=== PATIENT | female | born 1965 | race Caucasian/White ===

== ENCOUNTER 2018-06-18 04:02 | Emergency (ER) | payer MEDICARE ==
[~2018-06-18] VITALS: Ht 160 cm; Wt 72.1 kg
[~2018-06-18 04:02] MED LIST: CLON0.5T; QUET400T PO
--- NOTE | 2018-06-18 04:10 | NUR ---
PT BIBSELF FROM HOME S/P FALLING ON STEPS AND HITTING HEAD AGAINST WALL. LAC ON FOREHEAD. LEFT LEG BRUISING. RIGHT HAND ABRASION. CHIN ABRASION. NAD NOTED. RESP EEVN AND UNLABORED. PT AOX4. PT ON MONITOR IN BED 2 WITH FAMILY AT BEDSIDE. WILL CONTINUE TO MONITOR.
[2018-06-18] MEDS ORDERED: BACITRACIN ZINC OINT PACKET 1 EA PACKET TP ONE (05:00)
[2018-06-18] MEDS ORDERED: TDAP [DIPH/PERTUSSIS/TET] 0.5 ML VIAL IM ONE ×2 (05:00→05:19)
--- NOTE | 2018-06-18 05:02 | NUR ---
PT TAKEN TO RADIOLOGY VIA KAELA
--- NOTE | 2018-06-18 05:15 | NUR ---
TECH AT BEDSIDE FOR WOUND CARE
[2018-06-18 05:34] VITALS: BP 120/83
--- NOTE | 2018-06-18 06:01 | NUR ---
Patient discharged to home in stable condition. Written and verbal after care instructions given. Patient verbalizes understanding of instruction. PT AMBULATORY WITH STEADY GAIT ACCOMPANIED BY FAMILY.
== END 2018-06-18 06:12 | disposition home or self-care (01) ==
LOC: ER 04:05
DX: S01.81XA Laceration without foreign body of other part of head, initial encounter (principal); S16.1XXA Strain of muscle, fascia and tendon at neck level, initial encounter; S80.12XA Contusion of left lower leg, initial encounter; F20.9 Schizophrenia, unspecified; F17.200 Nicotine dependence, unspecified, uncomplicated; Z90.89 Acquired absence of other organs; Z88.0 Allergy status to penicillin; Z88.8 Allergy status to other drugs, medicaments and biological substances; Z86.711 Personal history of pulmonary embolism; Z79.899 Other long term (current) drug therapy; W01.198A Fall on same level from slipping, tripping and stumbling with subsequent striking against other object, initial encounter; Y93.89 Activity, other specified; Y92.89 Other specified places as the place of occurrence of the external cause; Y99.8 Other external cause status
CPT/HCPCS: 70450; 72125; 90471; 90715; 99284; A4606

== ENCOUNTER 2018-08-03 18:24 | Inpatient (IN) | payer MEDICARE ==
[~2018-08-03] VITALS: Ht 160 cm; Wt 73.0 kg
--- NOTE | 2018-08-03 18:43 | NUR ---
PT BIBSELF FOR DISTENDED ABDOMEN; PT AAOX4, PT ON MONITOR, VSS, NAD NOTED, PENDING ER PROVIDER EVAL
[2018-08-03 19:12] LABS: BASOPHILS # (AUTO) 0.1 /CMM (0.0-0.2); BASOPHILS % (AUTO) 0.6 % (0.0-2.0); HEMATOCRIT 43 % (33-45); LYMPHOCYTES % (AUTO) 7.3 % (20.0-44.0); MEAN CORPUSCULAR HGB CONC 35 g/dl (31.0-36.0); MEAN CORPUSCULAR VOLUME 95 fL (82-100); MONOCYTES # (AUTO) 1.1 /CMM (0.1-1.30); MONOCYTES % (AUTO) 8.1 % (2.0-12.0); NEUTROPHILS # (AUTO) 11.7 /CMM (1.8-8.9); PLATELET COUNT (AUTO) 431 /CMM (150-450); RED BLOOD CELL COUNT(AUTO) 4.54 MIL/uL (4.0-5.2); WHITE BLOOD COUNT (AUTO) 14.1 K/uL (4.3-11.0)
--- NOTE | 2018-08-03 19:31 | NUR ---
I CALLED [facility] AND SPOKE TO COOK SEAFOOD RADIOLOGIST, HE SAID THAT IT IS UNUSUAL TO DO PROCEDURES LATE AT THIS TIME AND IF PATIENT CAN BE ADMITTED AND HAVE PARACENTESIS DONE TOMORROW MORNING. SPOKE TO ER PHYSICIAN AFTERWARDS AND SHE SAID PATIENT LIKELY GOING TO BE ADMITTED AND WILL COORDINATE WITH COOK SEAFOOD RADIOLOGIST IF NEED BE. LABS, BLOOD THINNERS, AND CONSENT PENDING AT THIS TIME.
[2018-08-03 19:32] LABS: ALBUMIN 2.6 g/dL (3.4-5.0); BILIRUBIN,DIRECT 0.3 mg/dL (0.0-0.2); BILIRUBIN,TOTAL 0.7 mg/dL (0.2-1.0); CALCIUM, SERUM 8.2 mg/dL (8.5-10.1); CREATININE 0.6 mg/dL (0.6-1.3); POTASSIUM 3.9 mmol/L (3.5-5.1); TOTAL PROTEIN, SERUM 5.9 g/dL (6.4-8.2)
[2018-08-03 20:44] LABS: BAND % (MANUAL) 1 % (0.0-5.0); EOSINOPHILS % (MANUAL) 3 % (0-4); LYMPHOCYTES % (MANUAL) 6 % (16-48); MONOCYTES % (MANUAL) 5 % (0-11.0); NEUTROPHILS % (MANUAL) 85 (42-76)
--- NOTE | 2018-08-03 21:36 | NUR ---
[facility] P[facility], DAISHA JONES POWER SWITCHBOARD OPERATOR
--- NOTE | 2018-08-03 21:37 | NUR ---
CALLED NURSING SUP. FOR TELE BED
--- NOTE | 2018-08-03 21:50 | NUR ---
PAGED DR. LEVI
[2018-08-03] MEDS ORDERED: IV NS 0.9% 1,000 ML BAG IV ONE (22:00)
--- NOTE | 2018-08-03 22:13 | NUR ---
TELE 113-2
--- NOTE | 2018-08-03 22:35 | NUR ---
REPORT GIVEN TO KALLI LEE FOR ELISABETH; PT WILL BE TRANSPORTED VIA ACLS PROTOCOL
[2018-08-03 22:52] VITALS: BP 119/74
[2018-08-03] MEDS ORDERED: Z GUARD REMEDY 2 OZ OINT TP PRN (23:00)
[2018-08-03] MEDS ORDERED: ONDANSETRON HCL/PF 4 MG/2 ML VIAL IVP PRN (23:00)
[2018-08-03] MEDS ORDERED: MAG HYDROX/AL HYDROX/SIMETH 30 ML UDC PO PRN (23:00)
[2018-08-03] MEDS ORDERED: MAGNESIUM HYDROXIDE 30 ML UDC PO PRN (23:00)
[2018-08-03] MEDS ORDERED: QUETIAPINE FUMARATE 100 MG TABLET PO ONE (23:30)
[2018-08-03 23:55] VITALS: BP 119/74
[2018-08-04] VITALS: BP 115/77
[2018-08-04 04:00] VITALS: BP 99/65
[2018-08-04 05:02] LABS: BASOPHILS % (AUTO) 0.3 % (0.0-2.0); EOSINOPHILS % (AUTO) 1.1 % (0.0-6.0); HEMATOCRIT 38 % (33-45); HEMOGLOBIN 13.5 g/dL (11.5-14.8); LYMPHOCYTES # (AUTO) 0.9 /CMM (0.8-4.8); LYMPHOCYTES % (AUTO) 11.1 % (20.0-44.0); MEAN CORPUSCULAR HGB CONC 35 g/dl (31.0-36.0); MEAN CORPUSCULAR VOLUME 94 fL (82-100); MONOCYTES # (AUTO) 0.9 /CMM (0.1-1.30); MONOCYTES % (AUTO) 10.6 % (2.0-12.0); NEUTROPHILS # (AUTO) 6.6 /CMM (1.8-8.9); NEUTROPHILS % (AUTO) 76.9 % (43.0-81.0); PLATELET COUNT (AUTO) 301 /CMM (150-450); RED BLOOD CELL COUNT(AUTO) 4.05 MIL/uL (4.0-5.2); WHITE BLOOD COUNT (AUTO) 8.5 K/uL (4.3-11.0)
[2018-08-04 05:25] LABS: CALCIUM, SERUM 8.3 mg/dL (8.5-10.1); CREATININE 0.5 mg/dL (0.6-1.3); MAGNESIUM 1.9 mg/dL (1.8-2.4); PHOSPHORUS 4.1 mg/dL (2.5-4.9); POTASSIUM 4.2 mmol/L (3.5-5.1)
[2018-08-04 06:02] LABS: THYROID STIMULATING HORMONE 1.953 uIU/mL (0.358-3.74)
--- NOTE | 2018-08-04 06:43 | NUR ---
rn notes received patient from er via stretcher at about 2230, in stable condition. no distress noted. breathing even and unlabored. no complaint of pain or discomfort. vital signs wnl. alert and oriented. verbally able to communicate needs. ambulatory. needs attended. meds given. kept clean and dry
--- NOTE | 2018-08-04 07:43 | NUR ---
ALL AROUND GEAR MACHINE OPERATOR OPENING NOTES RECEIVED PATIENT FROM METAL CLEANER RN, A/O X 4, IN BED AND AWAKE. NO DISTRESS NOTED, NO C/O PAIN. ON TELE SR93, BREATHING EVEN AND UNLABORED. PATIENT AMBULATORY AND ABLE TO COMMUNICATE NEEDS. WILL CONTINUE TO MONITOR.
[2018-08-04 08:00] VITALS: BP_SYST 100; BP_SYST 110; BP_DIAS 62
[2018-08-04] MEDS ORDERED: PANTOPRAZOLE 40 MG VIAL IV SCH (09:00)
[2018-08-04] MEDS ORDERED: NICOTINE PATCH (14MG) 14 MG PATCH.TD24 TD SCH (09:00)
[2018-08-04 12:00] VITALS: BP_SYST 112; BP_DIAS 68; BP_DIAS 70
[2018-08-04] MEDS ORDERED: PANTOPRAZOLE 40 MG TABLET.DR PO SCH (12:15)
--- NOTE | 2018-08-04 14:48 | NUR ---
SHIPS EQUIPMENT ENGINEER NOTE URINE SPECIMEN COLLECTED AND SENT TO LABS FOR UA
[2018-08-04 16:00] VITALS: BP 110/75
[2018-08-04 16:14] LABS: APPEARANCE,URINE CLEAR (CLEAR); BILIRUBIN,URINE NEGATIVE (NEGATIVE); BLOOD, URINE NEGATIVE Ery/uL (NEGATIVE); COLOR,URINE YELLOW (YELLOW); PH,URINE 6.5 (5.0-8.0); PROTEIN,URINE NEGATIVE (NEGATIVE); UGLUCOSE NEGATIVE (NEGATIVE)
[2018-08-04 16:15] LABS: KETONES,URINE NEGATIVE (NEGATIVE); LEUKOCYTE ESTERASE ,URINE NEGATIVE (NEGATIVE); NITRITE, URINE NEGATIVE (NEGATIVE)
[2018-08-04 17:25] LABS: URINE SODIUM, RANDOM < 5 mmol/l (40-220)
[2018-08-04 17:27] LABS: BACTERIA,URINE 2+ /HPF (None Seen); RBC,URINE 0-2 /HPF (0-2); WBC,URINE 0-2 /HPF (0-3)
[2018-08-04 18:25] LABS: OSMOLALITY,URINE 225 mOS/kg (340-1090)
--- NOTE | 2018-08-04 19:41 | NUR ---
MS BUNDLE BREAKER NOTE PATIENT DISCHARGED PER MD ORDER. PATIENT LEFT WITH MOTHER VIA WHEELCHAIR TO PARKING LOT WITH RN. PATIENT STABLE, NO DISTRESS OR SOB. BELONGINGS LIST AND EXIT CARE COMPLETED. TELE MONITOR REMOVED EARLIER IN DAY WHEN PATIENT DOWNGRADED TO MS. ID BAND REMOVED. DISCHRGE EDUCATION GIVEN BY RN.
[2018-08-04] MEDS ORDERED: QUETIAPINE FUMARATE 100 MG TABLET PO SCH (22:00)
[2018-08-04] MEDS ORDERED: Medication Not On Formulary EA (Quetiapine Fumarate (Seroquel) 400 MG) PO SCH (22:00)
== END 2018-08-04 18:15 | disposition home or self-care (01) | DRG 433 ==
LOC: ER 18:26 → TELE1 22:19 → MEDSG1 08-04 13:24
PROVIDERS: ADMIT Registered Nurse; ATTEND Registered Nurse
PROC: 0W9G3ZZ Drainage of Peritoneal Cavity, Percutaneous Approach (ICD-10-PCS; principal; 2018-08-03)
DX: K70.31 Alcoholic cirrhosis of liver with ascites (principal); E87.1 Hypo-osmolality and hyponatremia; Z86.711 Personal history of pulmonary embolism; F20.9 Schizophrenia, unspecified; Z98.890 Other specified postprocedural states; Z88.1 Allergy status to other antibiotic agents; Z88.2 Allergy status to sulfonamides; F17.200 Nicotine dependence, unspecified, uncomplicated; E87.70 Fluid overload, unspecified; Z68.28 Body mass index [BMI] 28.0-28.9, adult
CPT/HCPCS: 36415; 76942-TC; 80048-TC; 80061-TC; 80076-TC; 81000-TC; 83735-TC; 83935-TC; 84100-TC; 84295-TC; 84300-TC; 84443-TC; 85025-TC; 85730-TC; 87081-TC; 87086-TC; G0378; J7030

== ENCOUNTER 2018-09-20 18:36 | Inpatient (IN) | payer MEDICARE ==
[~2018-09-20] VITALS: Ht 160 cm; Wt 67.1 kg
--- NOTE | 2018-09-20 18:47 | NUR ---
BIB SELF FOR DIFFUSE ABDOMINAL PAIN WOST S/P PARACENTESIS THIS AM AT [facility]. TO ER BED 4, HOOKED TO MONITOR, CHANGED TO GOWN, PROVIDED W WARM BLANKET, AWAITING MD SMITH.
--- NOTE | 2018-09-20 19:00 | NUR ---
DESIREE FLEMING AT BEDSIDE
[2018-09-20] MEDS ORDERED: ONDANSETRON HCL/PF 4 MG/2 ML VIAL ONE (19:15)
[2018-09-20] MEDS ORDERED: MORPHINE SULFATE INJ 2 MG/ML DISP.SYRIN ONE (19:15)
[2018-09-20 19:16] LABS: BASOPHILS % (AUTO) 0.4 % (0.0-2.0); EOSINOPHILS % (AUTO) 0.2 % (0.0-6.0); HEMATOCRIT 41 % (33-45); HEMOGLOBIN 14.8 g/dL (11.5-14.8); LYMPHOCYTES # (AUTO) 0.4 /CMM (0.8-4.8); LYMPHOCYTES % (AUTO) 5.5 % (20.0-44.0); MEAN CORPUSCULAR HGB CONC 36 g/dl (31.0-36.0); MEAN CORPUSCULAR VOLUME 93 fL (82-100); MONOCYTES # (AUTO) 0.8 /CMM (0.1-1.30); MONOCYTES % (AUTO) 10.4 % (2.0-12.0); NEUTROPHILS # (AUTO) 6.8 /CMM (1.8-8.9); NEUTROPHILS % (AUTO) 83.5 % (43.0-81.0); PLATELET COUNT (AUTO) 227 /CMM (150-450); RED BLOOD CELL COUNT(AUTO) 4.44 MIL/uL (4.0-5.2); WHITE BLOOD COUNT (AUTO) 8.1 K/uL (4.3-11.0)
[2018-09-20 19:30] LABS: CALCIUM, SERUM 8.3 mg/dL (8.5-10.1); CARBON DIOXIDE 30 mmol/L (21-32); CHLORIDE 89 mmol/L (98-107); CREATININE 0.6 mg/dL (0.6-1.3); GLUCOSE 163 mg/dL (74-106); POTASSIUM 2.9 mmol/L (3.5-5.1); SODIUM SERUM 127 mmol/L (136-145); UREA NITROGEN, BLOOD 3 mg/dL (7-18)
[2018-09-20] MEDS ORDERED: ONDANSETRON HCL/PF 4 MG/2 ML VIAL IVP ONE (19:30)
[2018-09-20] MEDS ORDERED: MORPHINE SULFATE INJ 2 MG/ML DISP.SYRIN IV ONE (19:30)
[2018-09-20] MEDS ORDERED: IV NS 0.9% 500 ML BAG IV ONE (19:30)
[2018-09-20 19:47] LABS: ALANINE AMINOTRANSFERASE 112 U/L (12-78); ALBUMIN 2.4 g/dL (3.4-5.0); ALKALINE PHOSPHATASE 592 U/L (46-116); ASPARTATE AMINOTRANSFERASE 197 U/L (15-37); BILIRUBIN,DIRECT 0.5 mg/dL (0.0-0.2); BILIRUBIN,TOTAL 0.9 mg/dL (0.2-1.0); LIPASE 92 U/L (73-393); TOTAL PROTEIN, SERUM 5.6 g/dL (6.4-8.2)
--- NOTE | 2018-09-20 19:48 | NUR ---
REPORT GIVEN TO GRACIELA LEE FOR ELISABETH
[2018-09-20 20:07] LABS: BAND % (MANUAL) 6 % (0.0-5.0); LYMPHOCYTES % (MANUAL) 5 % (16-48); NEUTROPHILS % (MANUAL) 80 (42-76)
[2018-09-20 20:08] LABS: MONOCYTES % (MANUAL) 9 % (0-11.0)
[2018-09-20] MEDS ORDERED: POTASSIUM CHLORIDE 20 MEQ TAB.PRT.SR PO ONE ×2 (20:30→20:35)
--- NOTE | 2018-09-20 20:44 | NUR ---
VERBAL ORDER FROM DR. THOMAS; ATIVAN 1MG IVP GIVEN, WASTED 1MG.
--- NOTE | 2018-09-20 20:51 | NUR ---
314-2 MEDSUR DX SMALL BOWEL OBSTRUCTION ACCEPTING NATACHA SANDERS DNP
[2018-09-20] MEDS ORDERED: POTASSIUM CHLORIDE 20 MEQ POWDER PACKET PO ONE (21:00)
--- NOTE | 2018-09-20 21:11 | NUR ---
VERBAL ORDER FROM DR THOMAS: CHANGE POTASSIUM 60MEQ PO TO POTASSIUM 60MEQ IVPB.
[2018-09-20] MEDS ORDERED: MORPHINE SULFATE INJ 2 MG/ML DISP.SYRIN IV PRN ×4 (21:30→22:15)
[2018-09-20] MEDS ORDERED: PANTOPRAZOLE 40 MG VIAL IV SCH ×3 (21:30→21:45)
[2018-09-20] MEDS ORDERED: POTASSIUM CHLORIDE 10 MEQ/50 ML PREMIXED IVPB FOR PERIPHERAL LINE IV ONE (21:30)
[2018-09-20] MEDS ORDERED: ONDANSETRON HCL/PF 4 MG/2 ML VIAL IVP PRN ×4 (21:30→22:15)
[2018-09-20] MEDS ORDERED: IV LR 1000 ML 1,000 ML IV PRN (21:30)
--- NOTE | 2018-09-20 21:36 | NUR ---
Report given to Rvi RN for continuation of care.
[2018-09-20 21:55] VITALS: BP 118/90
--- NOTE | 2018-09-20 21:55 | NUR ---
RECEIVED PATIENT FROM ER FOR DX SBO. PATIENT AO X 3, ABLE TO MAKE NEEDS KNOWN. NO ACUTE DISTRESS NOTED. RIGHT ARM PAIN 5/10; POSSIBLY DUE TO KCL IV; WILL RUN WITH NS TO DECREASE IRRITATION TO VEIN. IV SITE PATENT, INTACT; FLUSHED. SKIN ASSESSMENT DONE. BELONGINGS LIST COMPLETED. SAFETY REMINDERS GIVEN. ON LOW BED WITH BILATERAL UPPER SIDE RAILS UP. CALL DOWNEY WITHIN EASY REACH. WILL CONTINUE TO MONITOR.
[2018-09-20 22:00] VITALS: BP 118/90
[2018-09-20] MEDS ORDERED: LORAZEPAM INJ 2 MG/ML VIAL IV PRN ×4 (22:00→22:30)
[2018-09-20] MEDS ORDERED: IV NS 0.9% 1,000 ML IV PRN ×3 (22:00→22:15)
[2018-09-20] MEDS ORDERED: POTASSIUM CL. PREMIX PERIPHER. 50 ML IV SCH ×3 (22:00→22:15)
[2018-09-20] MEDS ORDERED: LORAZEPAM INJ 2 MG/ML VIAL IV ONE (22:00)
[2018-09-21] VITALS (19 sets, daily range): BP systolic 79–177; BP diastolic 57–100
[2018-09-21] MEDS: POTASSIUM CL. PREMIX PERIPHER. 50 ML IV SCH ×5 (00:26→05:07)
[2018-09-21] MEDS: IV NS 0.9% 1,000 ML IV PRN (00:28)
[2018-09-21] MEDS ORDERED: POTASSIUM CL. PREMIX PERIPHER. 50 ML ONE (05:05)
--- NOTE | 2018-09-21 06:00 | NUR ---
PATIENT ASLEEP, EASILY AROUSABLE. RESPIRATIONS EVEN. NO SIGNS OF PAIN NOTED. DUE MEDS GIVEN WITH NO ASE NOTED. IVF INFUSING ORDERED. NGT INTACT; ON LOW INTERMITTENT SUCTION WITH GREENISH DRAINAGE; 600 ML OUTPUT FROM NGT. NEEDS ATTENDED. SAFETY PRECAUTIONS AND COMFORT MEASURES IN PLACE. WILL GIVE REPORT TO DAY SHIFT FOR CONTINUITY OF CARE.
[2018-09-21 07:32] LABS: BASOPHILS % (AUTO) 0.3 % (0.0-2.0); EOSINOPHILS % (AUTO) 1.3 % (0.0-6.0); HEMATOCRIT 41 % (33-45); HEMOGLOBIN 14.5 g/dL (11.5-14.8); LYMPHOCYTES % (AUTO) 16.1 % (20.0-44.0); MEAN CORPUSCULAR HGB CONC 35 g/dl (31.0-36.0); MEAN CORPUSCULAR VOLUME 94 fL (82-100); MONOCYTES # (AUTO) 0.7 /CMM (0.1-1.30); MONOCYTES % (AUTO) 12.1 % (2.0-12.0); NEUTROPHILS # (AUTO) 4.2 /CMM (1.8-8.9); NEUTROPHILS % (AUTO) 70.2 % (43.0-81.0); PLATELET COUNT (AUTO) 240 /CMM (150-450)
[2018-09-21 07:36] LABS: CALCIUM, SERUM 8.1 mg/dL (8.5-10.1); CREATININE 0.5 mg/dL (0.6-1.3); MAGNESIUM 2.2 mg/dL (1.8-2.4); PHOSPHORUS 4.4 mg/dL (2.5-4.9)
[2018-09-21 07:39] LABS: THYROID STIMULATING HORMONE 2.846 uIU/mL (0.358-3.74)
--- NOTE | 2018-09-21 07:43 | NUR ---
MS RN NOTES PATIENT RECEIVED RESTING INSIDE ROOM. AWAKE, ALERT AND ORIENTED X 4, VERBALLY RESPONSIVE AND RESPONDS TO VERBAL AND TACTILE STIMULI. BREATHING EVEN AND UNLABORED. NO ACUTE DISTRESS. DENIES ANY PAIN OR DISCOMFORT AT THIS TIME. NGT IN PLACE ON LOW INTERMITTENT SUCTION, NOTED WITH GREENISH/YELLOWISH OUTPUT. PATIENT NPO AT THIS TIME, AWAITING MD CONSULT. PATIENT AWARE AND VERBALIZED UNDERSTANDING. WILL CONTINUE TO MONITOR. BED LOCKED AND IN LOW POSITION. BILATERAL UPPER SIDE RAILS UIP AND LOCKED. CALL LIGHT WITHIN EASY REACH
[2018-09-21] MEDS ORDERED: FLUO-120 PO (08:09)
[2018-09-21] MEDS ORDERED: MULT-24 PO (08:09)
[2018-09-21] MEDS: PANTOPRAZOLE 40 MG VIAL IV SCH (08:30)
--- NOTE | 2018-09-21 10:03 | NUR ---
MS RN NOTES RECEIVED CALL FROM DR MITCHELL WITH PLAN FOR PATIENT TO HAVE UMBILICAL HERNIA REPAIR, POSSIBLE BOWEL RESECTION. VERIFIED INFORMED CONSENT OBTAINED BY MD. PATIENT REMAINS NPO AT THIS TIME. VERBALIZES UNDERSTANDING WITH TREATMENT PLAN. WILL CONTINUE TO MONITOR
[2018-09-21] MEDS ORDERED: PHENOL/SODIUM PHENOLATE 1 BOTTLE MM PRN (10:30)
--- NOTE | 2018-09-21 10:35 | NUR ---
MS RN NOTES PATIENT COMPLAINING OF DISCOMFORT REGARDING NGT, VERBALIZING THAT ITS MAKING HER GAG AND SHE WANTS IT OUT. NOTIFIED DR MITCHELL, SAID WE CANNOT REMOVE IT AT THIS TIME. WITH NEW ORDER FOR CHLORASEPTIC SPRAY QID PRN. NOTED AND CARRIED OUT. AWAITING FOR MEDICATION.
--- NOTE | 2018-09-21 10:38 | NUR ---
MS RN NOTES PATIENT PULLED NGT OUT. VERBALIZED SHE DOESNT WANT IT ANYMORE. DOES NOT WANT TO HAVE CHLORASEPTIC SPRAY AT THIS TIME. REFUSED TO HAVE NGT REINSERTION. DR MITCHELL MADE AWARE, NO NEW ORDERS AT THIS TIME.
--- NOTE | 2018-09-21 10:44 | NUR ---
MS RN NOTES PATIENT RESTING INSIDE ROOM. REPORTS FEELING OF RELIEF SHE DOES NOT HAVE NGT ANYMORE. WILL CONTINUE TO MONITOR
--- NOTE | 2018-09-21 11:05 | NUR ---
RN NOTES PATIENT REPORTED THAT SHE HAD HER MENOPAUSE LAST YEAR. DENIES HAVING HER MENSTRUAL PERIOD SINCE 2018.
--- NOTE | 2018-09-21 11:15 | NUR ---
MS RN NOTES PATIENT LEFT UNIT BY KAELA IN STABLE CONDITION. NO ACUTE DISTRESS.
[2018-09-21] MEDS ORDERED: FENTANYL PF 100MCG/2ML AMPUL ONE (11:35)
[2018-09-21] MEDS ORDERED: SUCCINYLCHOLINE CHLORIDE 20 MG/ML VIAL ONE (11:36)
[2018-09-21] MEDS ORDERED: MIDAZOLAM HCL 2 MG/2ML VIAL ONE (11:36)
[2018-09-21] MEDS ORDERED: LEVOFLOXACIN 500 MG /D5W 100ML 100 ML IV ONE (12:11)
[2018-09-21] MEDS ORDERED: NALOXONE HCL 0.4 MG/ML AMPUL ONE (12:46)
[2018-09-21] MEDS ORDERED: METOCLOPRAMIDE HCL 10 MG/2 ML VIAL IV PRN (13:00)
[2018-09-21] MEDS ORDERED: HYDROCODONE/APAP 5/325MG 1 EACH TABLET PO PRN (13:00)
[2018-09-21] MEDS ORDERED: FLUMAZENIL 0.5 MG VIAL ONE (13:09)
[2018-09-21 13:59] LABS: ABG BASE EXCESS -6.5 mmol/L; ABG PCO2 46.6 mmHg (35.0-45.0); ABG PH 7.264 (7.350-7.450); ABG PO2 54.8 mmHg (75.0-100.0); AaDO2 205.8 mmHg; COHb 1.3 % (0.5-1.5); MetHb 0.7 % (0.0-1.5); O2Hb 79.4 % (94.0-97.0); SITE, ABG Right Radial; VENT MODE, BG NASAL CANNULA
--- NOTE | 2018-09-21 14:20 | NUR ---
RT Pt placed on BiPAP due to abnormal ABG results. Pt appears to be more alert and stable than in PACU. BiPAP alarms are set and audible with BVM by bedside. BiPAP is plugged into red outlet. No respiratory distress noted at this time. Addendum: 09/21/18 at 1650 by SCOTT MANCINI RT Amended: Links added.
--- NOTE | 2018-09-21 15:00 | NUR ---
received pt from OR, s/o SBO and umbilical hernia repair in respiratory distress on bipap, sat well, alert, follows commands, NPO, midabdominal surgical dressing intact, no bleeding noted, v/s stable, no pain, family at the bedside.
--- NOTE | 2018-09-21 15:03 | NUR ---
RT Pt became claustrophobic and was placed on 15l non rebreather by RN. Pt appears to be stable off BiPAP at this time. Addendum: 09/21/18 at 1650 by SCOTT MANCINI RT Amended: Links added.
--- NOTE | 2018-09-21 15:28 | NUR ---
RN NOTES PATIENT BELONGINGS BROUGHT TO ICU, INCLUDING PATIENT'S PHONE EMPLOYMENT APPEALS EXAMINER, YELLOW BRACELET AND YELLOW NECKLACE. OTHER BELONGINGS AT BEDSIDE COMPLETE. NO REPORT OF MISSING INVENTORY. RECEIVING NURSE JOSE MIGUEL LEE AT BEDSIDE.
[2018-09-21 15:40] LABS: ABG BASE EXCESS -1.7 mmol/L; ABG OXYGEN SATURATION 98.7 % (92.0-98.5); ABG PCO2 36.2 mmHg (35.0-45.0); ABG PH 7.409 (7.350-7.450); ABG PO2 144.2 mmHg (75.0-100.0); AaDO2 532.6 mmHg; MetHb 0.7 % (0.0-1.5); SITE, ABG Left Radial; VENT MODE, BG N/B
[2018-09-21] MEDS: IV D5/0.45 NACL W/20 MEQ KCL 1L IV PRN ×2 (16:36)
--- NOTE | 2018-09-21 16:58 | NUR ---
pt is resting in the bed, alert, follows commands, SR, on 4L 02 sat well, able to swallow, had ice chips, abdominal dressing intact no bleeding noted, v/s stable, no pain.
--- NOTE | 2018-09-21 20:00 | NUR ---
RN/ICU NOTES: RECEIVED PT. IN BED W/ HOB ELEVATED AWAKE AND ALERT VERBALLY RESPONSIVE. ABLE TO MAKE NEEDS KNOWN. ON TELE MONITOR W/ ST. W/ O2 @ 4LPM VIA N/C SAT 97%. PT. HAS ICE CHIPS AND GREEN SWAB TO SWAB HER MOUTH TO KEEP FROM DRYING. HAS A MID ABDOMEN DRESSING C/D/I NO BLEEDING NOTED. SECONDARY TO S/P SMALL BOWEL OBSTRUCTION. HAS D5 1/2 NS + 20 KCL @ 60 ML/HR VIA RT. FA # 20 PATENT AND INTACT W/ NO S/S OF INFECTION/INFILTRATION NOTED. CALL LIGHT W/ REACH. WILL CONTINUE TO MONITOR.
[2018-09-22] VITALS (18 sets, daily range): BP systolic 80–134; BP diastolic 41–76
[2018-09-22 05:23] LABS: BASOPHILS % (AUTO) 0.2 % (0.0-2.0); EOSINOPHILS % (AUTO) 0.5 % (0.0-6.0); HEMATOCRIT 41 % (33-45); HEMOGLOBIN 14.1 g/dL (11.5-14.8); LYMPHOCYTES % (AUTO) 11.2 % (20.0-44.0); MEAN CORPUSCULAR HGB CONC 34 g/dl (31.0-36.0); MEAN CORPUSCULAR VOLUME 96 fL (82-100); MONOCYTES % (AUTO) 10.3 % (2.0-12.0); NEUTROPHILS # (AUTO) 7.2 /CMM (1.8-8.9); NEUTROPHILS % (AUTO) 77.8 % (43.0-81.0); PLATELET COUNT (AUTO) 287 /CMM (150-450); RED BLOOD CELL COUNT(AUTO) 4.31 MIL/uL (4.0-5.2); WHITE BLOOD COUNT (AUTO) 9.3 K/uL (4.3-11.0)
[2018-09-22 05:35] LABS: CALCIUM, SERUM 7.7 mg/dL (8.5-10.1); CREATININE 0.7 mg/dL (0.6-1.3); MAGNESIUM 2.1 mg/dL (1.8-2.4); POTASSIUM 3.9 mmol/L (3.5-5.1)
--- NOTE | 2018-09-22 07:26 | NUR ---
ICU/RN NOTES: REPORT GIVEN TO AM SHIFT NURSE FOR ELISABETH.
--- NOTE | 2018-09-22 08:00 | NUR ---
horticulture teacher note received patient in bed ,alert oriented, on 4l o2 via nc ,no sob at his time , on clear liquid diet at this time , ate 100O% food , on ivf as ordered hl on rt fa intact and lt wrist isidro 22 intact , bed in lowest and locked position , still refusing to insert Quinonez cath at this time ,bladder scanner done ,noted retained 244 ml of urine, abdominal dressing intact m no active bleeding noted , safety measure observed, will cont to monitor closely
[2018-09-22] MEDS: PANTOPRAZOLE 40 MG VIAL IV SCH (08:56)
[2018-09-22] MEDS ORDERED: HYDROCODONE/APAP 5/325MG 1 EACH TABLET PO PRN (09:30)
--- NOTE | 2018-09-22 10:26 | NUR ---
horticulture/floriculture teacher tamica unable to urinte ,with bladder scanner 244 ml of urine ,new Quinonez cath inserted with lia color urine noted, will cont ti monitor closely
[2018-09-22] MEDS: IV D5/0.45 NACL W/20 MEQ KCL 1L IV PRN ×2 (10:45)
--- NOTE | 2018-09-22 10:52 | NUR ---
auricular therapist note dr garcia at bedside seen patient aware that patient c\o pain low abdomen ok to give [place] also ok to start on soft diet ,out off bed as tolerated ,aware that at surgical wound old blood new dressing changed
--- NOTE | 2018-09-22 11:00 | NUR ---
horticultural agent note dr wooten at bedside, on ra sat 96 % ,dr wooten notifyed
[2018-09-22] MEDS ORDERED: ALBUTEROL HALF STRENGTH 1.25 MG/3 ML VIAL.NEB NEB PRN (11:30)
[2018-09-22] MEDS ORDERED: IPRATROPIUM NEB FS 0.5 MG/2.5 ML AMPUL.NEB NEB PRN (11:30)
--- NOTE | 2018-09-22 11:30 | NUR ---
agricultural economics teacher note transferred to med surge as ordered ,report given to mike campbell
--- NOTE | 2018-09-22 11:40 | NUR ---
MS DIRECTOR TITLE NOTE PT ARRIVED TO MS UNIT VIA GURNEY IN STABLE CONDITION. PT IS A/O X4, AFEBRILE. RESPIRATIONS ARE EVEN AND UNLABORED, NOT IN ANY ACUTE DISTRESS NOTED. PUPILS ARE REACTIVE TO LIGHT, BILATERAL HAND TREATING ENGINEER HELPER ARE STRONG AND EQUAL. PT NOTED WITH DISTENDED ABDOMEN AND IS S/P HERNIA REPAIR BY DR. MITCHELL. ABDOMEN IS NOTED WITH DRESSING AND ABDOMINAL BINDER. PT ABLE TO PASS GAS BUT NO BM. PT NOTED WITH HELLER CATH, DRAINING HERIBERTO COLORED URINE. IV ACCESS TO RFA INTACT, NO INFILTRATION NOTED. DRESSING KEPT CLEAN AND DRY. SAFETY MEASURES ARE IN PLACE. INSTRUCTED PT TO USE CALL LIGHT WHEN ASSISTANCE IS NEEDED, CALL LIGHT IS LEFT WITHIN REACH. WILL MONITOR THROUGHOUT SHIFT FOR CONTINUITY OF CARE.
--- NOTE | 2018-09-22 17:15 | NUR ---
MS RN NOTE-- PT NOTED WITH BP 85-60, HR 92. PT APPEARS TO BE ASYMPTOMATIC. PT IS A/O X4, AFEBRILE. NO S/SX BLEEDING NOTED. WILL CONTINUE TO MONITOR.
--- NOTE | 2018-09-22 18:01 | NUR ---
MS RN NOTES-- BLOOD PRESSURE 100/68, HR 90. NO S/SX OF HYPOTENSION, NO S/SX OF BLEEDING. WILL CONTINUE TO MONITOR.
--- NOTE | 2018-09-22 18:35 | NUR ---
MS RN CLOSING NOTES ALL DUE MEDS GIVEN, NEEDS MET AND RENDERED. PT IS A/O X4, AFEBRILE. RESPIRATIONS ARE EVEN AND UNLABORED, NOT IN ANY ACUTE DISTRESS NOTED. PT C/O PAIN TO ABDOMINAL INCISION SITE 5/10 AND IS TOLERABLE, DENIES ANY SOB,N/V. IV SITE TO RFA INTACT, NO INFILTRATION NOTED. DRESSING KEPT CLEAN AND DRY. SAFETY MEASURES ARE IN PLACE. REMINDED PT TO USE CALL LIGHT WHEN ASSISTANCE IS NEEDED, CALL LIGHT IS LEFT WITHIN REACH. WILL ENDORSE TO NEXT SHIFT FOR CONTINUITY OF CARE.
--- NOTE | 2018-09-22 20:00 | NUR ---
RN MS OPENING NOTES RECEIVED PATIENT IN BED AWAKE, ALERT AND ORIENTED X4, VERBALLY RESPONSIVE, ABLE TO MAKE NEEDS KNOWN. BREATHING EVEN AND UNLABORED. NO SOB NOTED. TOLERATING ROOM AIR. WITH FEELINGS OF TENDERNESS ON THE ABDOMEN SITE, BUT NO PAIN MEDICATION NEEDED. IV ON RIGHT FOREARM INTACT AND PATENT WITH IVF INFUSING. SKIN DRY AND WARM TO TOUCH. ALL DRESSINGS CLEAN, DRY, AND INTACT. ALL OTHER NEEDS ATTENDED TO. SAFETY MEASURES IN PLACE. CALL LIGHT WITHIN REACH. WILL CONTINUE TO MONITOR.
--- NOTE | 2018-09-22 20:56 | NUR ---
RN MS NOTES PATIENT REQUESTED FOR HER SEROQUEL 600MG PO QHS TO BE CONTINUED FOR HER SCHIZOPHRENIA AND TO ALSO HELP HER SLEEP. INFORMED PATIENT THAT I WILL HAVE TO ASK MD FIRST. PATIENT VERBALIZED UNDERSTANDING. PAGED LINE ASSEMBLY UTILITY WORKER, ION SANDERS, AND INFORMED HIM OF PATIENT'S REQUEST. PER ION MANZANO, OK TO CONTINUE SEROQUEL 600MG PO QHS. ORDER NOTED AND CARRIED OUT. WILL CONTINUE TO MONITOR.
--- NOTE | 2018-09-22 21:45 | NUR ---
RN MS NOTES PATIENT REQUESTED FOR MILK OF MAGNESIA DUE TO NOW HAVING BOWELS FOR 2 DAYS NOW ONLY PASSING GAS. PATIENT HAD NO ORDER. INFORMED PATIENT THAT I WILL HAVE TO LET MD KNOW AGAIN. PAGED ION SANDRES REGARDING PATIENT'S REQUEST. PER ION MANZANO, PATIENT OK TO HAVE MOM 30ML QHS PRN FOR CONSTIPATION. ORDER NOTED AND CARRIED OUT. WILL CONTINUE TO MONITOR.
[2018-09-22] MEDS ORDERED: MAGNESIUM HYDROXIDE 30 ML UDC PO PRN (22:00)
[2018-09-22] MEDS ORDERED: QUETIAPINE FUMARATE 100 MG TABLET PO SCH (22:00)
--- NOTE | 2018-09-22 22:00 | NUR ---
RN MS NOTES OFFERED PATIENT THE MILK OF MAGNESIA THAT SHE REQUESTED. PER PATIENT, SHE WOULD LIKE TO WAIT FOR LATER ON AND WOULD JUST LIKE TO SLEEP FOR NOW. WILL CONTINUE TO MONITOR.
--- NOTE | 2018-09-23 01:34 | NUR ---
RN MS NOTES PATIENT CURRENTLY SLEEPING. IN NO DISTRESS. ALL NEEDS MET. WILL CONTINUE TO MONITOR.
--- NOTE | 2018-09-23 06:53 | NUR ---
RN MS CLOSING NOTES PATIENT RESTING IN BED. NO ACUTE CHANGES THROUGHOUT SHIFT. BREATHING EVEN AND UNLABORED. NO SOB NOTED. TOLERATING ROOM AIR. CURRENTLY WITH NO COMPLAINTS OF PAIN OR DISCOMFORT. NO FACIAL GRIMACING. IV ON RIGHT FOREARM INTACT AND PATENT WITH IVF INFUSING. ABDOMINAL DRESSING CLEAN, DRY, AND INTACT. ALL OTHER NEEDS ATTENDED TO. SAFETY MEASURES IN PLACE. CALL LIGHT WITHIN REACH. WILL ENDORSE TO ONCOMING NURSE FOR ELISABETH.
--- NOTE | 2018-09-23 07:47 | NUR ---
RN MS OPENING NOTES BEDSIDE REPORT GIVEN RECEIVED PATIENT IN BED AWAKE, ALERT AND ORIENTED X4,NO SOB NOTED. TOLERATING ROOM AIR. WITH FEELINGS OF TENDERNESS ON THE ABDOMEN SITE, BUT NO PAIN MEDICATION NEEDED. IV ON RIGHT FOREARM INTACT AND PATENT WITH IVF INFUSING. SKIN DRY AND WARM TO TOUCH. ALL DRESSINGS CLEAN, DRY, AND INTACT. ALL OTHER NEEDS ATTENDED TO. SAFETY MEASURES IN PLACE. CALL LIGHT WITHIN REACH. WILL CONTINUE TO MONITOR.
[2018-09-23 08:00] VITALS: BP 86/65
[2018-09-23] MEDS: PANTOPRAZOLE 40 MG VIAL IV SCH (08:06)
[2018-09-23] MEDS: IV NS 0.9% 1,000 ML IV PRN (08:21)
--- NOTE | 2018-09-23 16:17 | NUR ---
MS DISCHARGE NOTES PATIENT DISCHARGE ORDERS COMPLETED.VS T 98.2 HR 93 RR 17 O2 99% ON ROOM AIR BP 99/76. ALL NEW RX GIVEN TO PATIENT. WOUND CARE EXPLAINED WELL BATHING. F/U WITH SURGEON IN A WEEK. ALL EXIT CARE UTILIZED PHOTOS TAKEN. PATIENT LEFT WITH MOTHER AND BROTHER ESCORTED TO CAR VIA WHEELCHAIR.
== END 2018-09-23 14:15 | disposition home or self-care (01) | DRG 335 ==
LOC: ER 18:36 → MED 22:21 → UNDOADMIN 22:21 → MED 23:27 → ICU 09-21 14:20 → MEDSG2 09-22 11:19
PROVIDERS: ADMIT Nurse Practitioner Acute Care
PROC: 0WQF0ZZ Repair Abdominal Wall, Open Approach (ICD-10-PCS; principal; 2018-09-21)
PROC: 0DN80ZZ Release Small Intestine, Open Approach (ICD-10-PCS; 2018-09-21)
PROC: 0W9G3ZZ Drainage of Peritoneal Cavity, Percutaneous Approach (ICD-10-PCS; 2018-09-21)
DX: K42.0 Umbilical hernia with obstruction, without gangrene (principal); J96.22 Acute and chronic respiratory failure with hypercapnia; J96.21 Acute and chronic respiratory failure with hypoxia; E87.1 Hypo-osmolality and hyponatremia; K70.31 Alcoholic cirrhosis of liver with ascites; E87.6 Hypokalemia; K80.20 Calculus of gallbladder without cholecystitis without obstruction; E66.9 Obesity, unspecified; J44.9 Chronic obstructive pulmonary disease, unspecified; Z86.711 Personal history of pulmonary embolism; F20.9 Schizophrenia, unspecified; F17.200 Nicotine dependence, unspecified, uncomplicated; Z98.890 Other specified postprocedural states; Z88.1 Allergy status to other antibiotic agents; Z88.2 Allergy status to sulfonamides; Z68.26 Body mass index [BMI] 26.0-26.9, adult
CPT/HCPCS: 36415; 36600; 71045-TC; 80048-TC; 80061-TC; 80076-TC; 82803-TC; 82962-TC; 83690-TC; 83735-TC; 84100-TC; 84443-TC; 84484-TC; 85025-TC; 85610-TC; 86850-TC; 87081-TC; 88302-TC; 94799-TC; A6209; A6402; A6403; C9113; G0378; G0480; J0330; J1100; J1956; J2060; J2250; J2270; J2310; J2405; J2704; J2710; J3010; J3480; J3490; J7030; J7040; J7120

== ENCOUNTER 2018-10-31 09:48 | Emergency (ER) | payer MEDICARE ==
[~2018-10-31] VITALS: Ht 160 cm; Wt 73.0 kg
[~2018-10-31 09:48] MED LIST changes: -CLON0.5T; +FLUO-120 PO; +MULT-24 PO
--- NOTE | 2018-10-31 10:23 | NUR ---
HELLER CATHETER INSERTED FR 16, UA SAMPLE SENT TO LAB. PATIENT TOLERATED PROCEDURE. URINE BAG SHOWS CLEAR YELLOW URINE OUTPUT OF 1100ML.
[2018-10-31 10:27] LABS: APPEARANCE,URINE Clear (CLEAR); BILIRUBIN,URINE Negative (NEGATIVE); BLOOD, URINE Negative Ery/uL (NEGATIVE); COLOR,URINE Yellow (YELLOW); KETONES,URINE Negative (NEGATIVE); LEUKOCYTE ESTERASE ,URINE Trace (NEGATIVE); NITRITE, URINE Negative (NEGATIVE); PH,URINE 6.5 (5.0-8.0); PROTEIN,URINE Negative (NEGATIVE); UGLUCOSE Negative (NEGATIVE); UROBILINOGEN,URINE 0.2 EU/dL (0.2)
[2018-10-31 10:29] LABS: BACTERIA,URINE Few /HPF (None Seen); RBC,URINE 0-2 /HPF (0-2); SQUAMOUS EPITHELIAL CELL,UR Few /HPF (None Seen)
--- NOTE | 2018-10-31 10:43 | NUR ---
HELLER CATH DISCONTINUED BY AND REMOVED. TOTAL URINE OUTPUT SHOWS 1300ML.
--- NOTE | 2018-10-31 10:45 | NUR ---
Patient discharged to home in stable condition. Written and verbal after care instructions given. Patient verbalizes understanding of instruction.
[2018-10-31 10:46] VITALS: BP 119/83
== END 2018-10-31 10:47 | disposition home or self-care (01) ==
LOC: ER 09:50
DX: R33.9 Retention of urine, unspecified (principal); F17.200 Nicotine dependence, unspecified, uncomplicated; Z86.711 Personal history of pulmonary embolism; Z88.8 Allergy status to other drugs, medicaments and biological substances; Z88.0 Allergy status to penicillin; Z90.89 Acquired absence of other organs; Z98.890 Other specified postprocedural states; Z79.899 Other long term (current) drug therapy
CPT/HCPCS: 81000-TC; 87086-TC

== ENCOUNTER 2018-10-31 16:27 | Emergency (ER) | payer MEDICARE ==
[~2018-10-31] VITALS: Ht 160 cm; Wt 69.9 kg
[2018-10-31 16:42] VITALS: BP 118/79
--- NOTE | 2018-10-31 17:30 | NUR ---
HELLER CATHETER FR 16 INSERTED, URINE BAG SHOWS 1100ML. PATIENT TOLERATED PROCEDURE.
[2018-10-31 17:39] LABS: APPEARANCE,URINE Clear (CLEAR); BILIRUBIN,URINE Negative (NEGATIVE); BLOOD, URINE Small Ery/uL (NEGATIVE); COLOR,URINE Yellow (YELLOW); KETONES,URINE Negative (NEGATIVE); LEUKOCYTE ESTERASE ,URINE Negative (NEGATIVE); NITRITE, URINE Negative (NEGATIVE); PH,URINE 6.5 (5.0-8.0); PROTEIN,URINE Negative (NEGATIVE); UGLUCOSE Negative (NEGATIVE); UROBILINOGEN,URINE 0.2 EU/dL (0.2)
[2018-10-31 17:47] LABS: BACTERIA,URINE Rare /HPF (None Seen); SQUAMOUS EPITHELIAL CELL,UR Few /HPF (None Seen); WBC,URINE NONE SEEN /HPF (0-3)
--- NOTE | 2018-10-31 18:30 | NUR ---
URINARY BAG CHANGED TO A LEG BAG. Patient discharged to home in stable condition. Written and verbal after care instructions given. Patient verbalizes understanding of instruction.
== END 2018-10-31 19:07 | disposition home or self-care (01) ==
LOC: ER 16:29
DX: R33.9 Retention of urine, unspecified (principal); K74.60 Unspecified cirrhosis of liver; F17.200 Nicotine dependence, unspecified, uncomplicated; Z86.711 Personal history of pulmonary embolism; Z90.89 Acquired absence of other organs; Z98.890 Other specified postprocedural states; Z88.0 Allergy status to penicillin; Z88.8 Allergy status to other drugs, medicaments and biological substances; Z79.899 Other long term (current) drug therapy
CPT/HCPCS: 81000-TC

== ENCOUNTER 2018-10-31 20:30 | Emergency (ER) | payer MEDICARE ==
[~2018-10-31] VITALS: Ht 160 cm; Wt 69.9 kg
[2018-10-31 21:05] VITALS: BP 116/75
--- NOTE | 2018-10-31 21:16 | NUR ---
DR GENAO IS AT THE BEDSIDE SCANNING THE PT'S BLADDER. PT WAS HERE 2X'S TODAY AND REC'D A HELLER CATH. PT THOUGHT THE HELLER WAS NOT WORKING, BUT IT IS, PER DR GENAO.
--- NOTE | 2018-10-31 21:26 | NUR ---
PT LEFT WITHOUT DISCHARGE.
== END 2018-10-31 21:28 | disposition home or self-care (01) ==
LOC: ER 20:32
DX: Z46.6 Encounter for fitting and adjustment of urinary device (principal); F20.9 Schizophrenia, unspecified; F17.200 Nicotine dependence, unspecified, uncomplicated; Z90.89 Acquired absence of other organs; Z98.890 Other specified postprocedural states; Z88.0 Allergy status to penicillin; Z88.8 Allergy status to other drugs, medicaments and biological substances; Z79.899 Other long term (current) drug therapy

== ENCOUNTER 2018-11-04 15:24 | Emergency (ER) | payer MEDICARE ==
[~2018-11-04] VITALS: Ht 160 cm; Wt 65.3 kg
--- NOTE | 2018-11-04 16:10 | NUR ---
TO ER, SHE WANTS THE HELLER CATHETER OUT; ITS NOT COMFORTABLE . TO ER BED 10, HOOKED TO MONITOR, PROVIDED W WARM BLANKET, AWAITING MD SMITH.
--- NOTE | 2018-11-04 16:11 | NUR ---
DR HERNANDEZ AT BEDSIDE
--- NOTE | 2018-11-04 16:25 | NUR ---
REMOVED URINARY CATHETER. PT TOLERATED PROCEDURE WELL.
[2018-11-04 16:28] VITALS: BP 121/87
== END 2018-11-04 16:28 | disposition home or self-care (01) ==
LOC: ER 15:42
DX: Z46.6 Encounter for fitting and adjustment of urinary device (principal); F20.9 Schizophrenia, unspecified; F31.9 Bipolar disorder, unspecified; F17.200 Nicotine dependence, unspecified, uncomplicated; Z88.8 Allergy status to other drugs, medicaments and biological substances; Z88.0 Allergy status to penicillin; Z79.899 Other long term (current) drug therapy
CPT/HCPCS: Z7502

== ENCOUNTER 2018-12-08 14:53 | Emergency (ER) | payer MEDICARE ==
[~2018-12-08] VITALS: Ht 160 cm; Wt 73.0 kg
--- NOTE | 2018-12-08 15:05 | NUR ---
TO ER BED 3 AWAITING MD SMITH, NAD
--- NOTE | 2018-12-08 15:14 | NUR ---
DR KMA AT BEDSIDE FOR EVAL
--- NOTE | 2018-12-08 15:15 | NUR ---
patient came in to the ER c/o abdominal distention, on room air, breathing evenly and unlabored. connected to the monitor and pulse ox. ambulatory with steady gait. Will continue to monitor accordingly.
[2018-12-08 15:41] LABS: BASOPHILS # (AUTO) 0.1 /CMM (0.0-0.2); EOSINOPHILS % (AUTO) 1.5 % (0.0-6.0); HEMATOCRIT 43 % (33-45); HEMOGLOBIN 14.9 g/dL (11.5-14.8); LYMPHOCYTES # (AUTO) 1.2 /CMM (0.8-4.8); LYMPHOCYTES % (AUTO) 16.4 % (20.0-44.0); MEAN CORPUSCULAR HGB CONC 35 g/dl (31.0-36.0); MEAN CORPUSCULAR VOLUME 98 fL (82-100); MONOCYTES # (AUTO) 0.5 /CMM (0.1-1.30); MONOCYTES % (AUTO) 7.4 % (2.0-12.0); NEUTROPHILS # (AUTO) 5.4 /CMM (1.8-8.9); NEUTROPHILS % (AUTO) 73.7 % (43.0-81.0); PLATELET COUNT (AUTO) 308 /CMM (150-450); RED BLOOD CELL COUNT(AUTO) 4.43 MIL/uL (4.0-5.2); WHITE BLOOD COUNT (AUTO) 7.4 K/uL (4.3-11.0)
[2018-12-08 15:48] LABS: CALCIUM, SERUM 8.3 mg/dL (8.5-10.1); CREATININE 0.5 mg/dL (0.6-1.3)
[2018-12-08 15:59] LABS: ALBUMIN 2.4 g/dL (3.4-5.0); BILIRUBIN,DIRECT 0.3 mg/dL (0.0-0.2); BILIRUBIN,TOTAL 0.6 mg/dL (0.2-1.0); TOTAL PROTEIN, SERUM 5.7 g/dL (6.4-8.2)
[2018-12-08] MEDS ORDERED: ETHYL CHLORIDE SPRAY 1 EA BOTTLE TP ONE (16:00)
[2018-12-08] MEDS ORDERED: LIDOCAINE/PRILOCAINE 1 EA KIT TP ONE (16:00)
--- NOTE | 2018-12-08 16:30 | NUR ---
Dr. Brown at bedside doing ultrasound guided paracentesis. consent signed by patient and removed 3.5liters.
[2018-12-08] MEDS ORDERED: POTASSIUM CHLORIDE 20 MEQ TAB.PRT.SR PO ONE ×2 (17:08→17:30)
[2018-12-08 17:59] VITALS: BP 128/88
--- NOTE | 2018-12-08 18:00 | NUR ---
Patient discharged to home in stable condition. Written and verbal after care instructions given. Patient verbalizes understanding of instruction.
== END 2018-12-08 17:59 | disposition home or self-care (01) ==
LOC: ER 14:55
DX: R18.8 Other ascites (principal); K74.60 Unspecified cirrhosis of liver; E87.6 Hypokalemia; F31.9 Bipolar disorder, unspecified; F17.200 Nicotine dependence, unspecified, uncomplicated; Z88.0 Allergy status to penicillin; Z88.8 Allergy status to other drugs, medicaments and biological substances; Z79.899 Other long term (current) drug therapy
CPT/HCPCS: 36415; 49083; 80048-TC; 80076-TC; 83690-TC; 85025-TC; 85730-TC; 87070-TC; 89051-TC

== ENCOUNTER 2019-10-02 09:41 | Emergency (ER) | payer MEDICARE, OTHER ==
[~2019-10-02] VITALS: Ht 160 cm; Wt 57.6 kg
[~2019-10-02 09:41] MED LIST changes: -FLUO-120 PO; +FLUO20CA42 PO
--- NOTE | 2019-10-02 09:46 | NUR ---
CAME IN FOR ABDOMINAL PAIN AND DISTENSION X "MONTHS", LAST BM YESTERDAY, TO ER BED 11, HOOKED TO MONITOR AND POX, CHANGED TO HOSP GOWQN, WARM BLANKET PROVIDED, PATIENT AAO x 4, BREATHING EVEN AND UNLABORED. DR FARMER AT BEDSIDE FOR EVAL.
[2019-10-02 10:12] LABS: BASOPHILS % (AUTO) 0.8 % (0.0-2.0); EOSINOPHILS % (AUTO) 0.7 % (0.0-6.0); HEMATOCRIT 42 % (33-45); HEMOGLOBIN 14.3 g/dL (11.5-14.8); LYMPHOCYTES # (AUTO) 1.5 /CMM (0.8-4.8); LYMPHOCYTES % (AUTO) 23.4 % (20.0-44.0); MEAN CORPUSCULAR HGB CONC 34 g/dl (31.0-36.0); MEAN CORPUSCULAR VOLUME 98 fL (82-100); MONOCYTES # (AUTO) 0.3 /CMM (0.1-1.30); MONOCYTES % (AUTO) 5.4 % (2.0-12.0); NEUTROPHILS # (AUTO) 4.3 /CMM (1.8-8.9); NEUTROPHILS % (AUTO) 69.7 % (43.0-81.0); PLATELET COUNT (AUTO) 320 /CMM (150-450); RED BLOOD CELL COUNT(AUTO) 4.26 MIL/uL (4.0-5.2); WHITE BLOOD COUNT (AUTO) 6.2 K/uL (4.3-11.0)
[2019-10-02 10:21] LABS: CREATININE 0.6 mg/dL (0.6-1.3); POTASSIUM 3.4 mmol/L (3.5-5.1)
[2019-10-02 10:28] LABS: ALBUMIN 4.1 g/dL (3.4-5.0); BILIRUBIN,DIRECT 0.1 mg/dL (0.0-0.2); BILIRUBIN,TOTAL 0.4 mg/dL (0.2-1.0); TOTAL PROTEIN, SERUM 7.4 g/dL (6.4-8.2)
[2019-10-02 10:30] LABS: APPEARANCE,URINE Clear (CLEAR); BILIRUBIN,URINE Negative (NEGATIVE); BLOOD, URINE Negative Ery/uL (NEGATIVE); COLOR,URINE Yellow (YELLOW); KETONES,URINE Negative (NEGATIVE); LEUKOCYTE ESTERASE ,URINE Negative (NEGATIVE); NITRITE, URINE Negative (NEGATIVE); PROTEIN,URINE Negative (NEGATIVE); UGLUCOSE Negative (NEGATIVE); UROBILINOGEN,URINE 0.2 EU/dL (0.2)
[2019-10-02 11:06] VITALS: BP 134/94
--- NOTE | 2019-10-02 11:06 | NUR ---
IV removed. Catheter intact and site benign. Pressure and 4x4 applied to site. No bleeding noted.Patient discharged to home in stable condition. Written and verbal after care instructions given. Patient verbalizes understanding of instruction.
== END 2019-10-02 11:06 | disposition home or self-care (01) ==
LOC: ER 09:49
DX: K42.9 Umbilical hernia without obstruction or gangrene (principal); F31.9 Bipolar disorder, unspecified; F17.200 Nicotine dependence, unspecified, uncomplicated; Z88.8 Allergy status to other drugs, medicaments and biological substances; Z88.0 Allergy status to penicillin; Z79.899 Other long term (current) drug therapy
CPT/HCPCS: 36415; 70450-TC; 71045-TC; 80048-TC; 80076-TC; 81000-TC; 82140-TC; 85025-TC; G0480

== ENCOUNTER 2019-12-25 20:28 | Emergency (ER) | payer MEDICARE, OTHER ==
[~2019-12-25] VITALS: Ht 165.1 cm; Wt 56.7 kg
[2019-12-25 20:31] VITALS: BP 131/80
--- NOTE | 2019-12-25 20:32 | NUR ---
PATIENT CAME TO ER BED 11 BIB RA IN CUSTODY OF [facility] C/O BILATERAL FOOT PAIN. PATIENT WAS CALLED BY [facility] AFTER VIOLATION OF RESTRAINING ORDER. BLISTERS NOTED ON RIGHT FOOT AND LEFT FOOT 5TH DIGIT. PATIENT STATES THAT SHE HAS BEEN WALKING IN UNCOMFORTABLE SHOES. PATIENT STATES SHE WAS RECENTLY RELEASED FROM [facility] BUT UNABLE TO PROVIDE DATE. PATIENT IS AAOX3. NO SOB. BREATHING EVENLY AND UNLABORED ON ROOM AIR.
--- NOTE | 2019-12-25 21:01 | NUR ---
XRAY AT BEDSIDE.
--- NOTE | 2019-12-25 21:42 | NUR ---
PATIENT IS MEDICALLY CLEARED FOR BOOKING. PATIENT IS NOW IN [facility].
--- NOTE | 2019-12-25 22:31 | NUR ---
NOW IN CUSTODY OF [facility] LAMP STACK DEVELOPER AT BEDSIDE.
== END 2019-12-25 22:30 | disposition home or self-care (01) ==
LOC: ER 20:45
DX: S90.822A Blister (nonthermal), left foot, initial encounter (principal); S90.821A Blister (nonthermal), right foot, initial encounter; M79.672 Pain in left foot; M79.671 Pain in right foot; Z02.89 Encounter for other administrative examinations; Z59.0 Homelessness; Z88.0 Allergy status to penicillin; Z79.899 Other long term (current) drug therapy; Z88.6 Allergy status to analgesic agent; X58.XXXA Exposure to other specified factors, initial encounter; Y93.89 Activity, other specified; Y92.89 Other specified places as the place of occurrence of the external cause; Y99.8 Other external cause status
CPT/HCPCS: 73630-TC

== ENCOUNTER 2020-01-06 11:46 | Emergency (ER) | payer SELFPAY ==
[~2020-01-06] VITALS: Ht 160 cm; Wt 59.0 kg
[2020-01-06 12:00] VITALS: BP 138/100
== END 2020-01-06 12:35 | disposition home or self-care (01) ==
LOC: ER 11:46
DX: K42.9 Umbilical hernia without obstruction or gangrene (principal); M65.4 Radial styloid tenosynovitis [de Quervain]; F31.9 Bipolar disorder, unspecified; F17.200 Nicotine dependence, unspecified, uncomplicated; Z88.0 Allergy status to penicillin; Z88.8 Allergy status to other drugs, medicaments and biological substances; Z79.899 Other long term (current) drug therapy

== ENCOUNTER 2020-01-16 14:14 | Emergency (ER) | payer OTHER ==
[~2020-01-16] VITALS: Ht 160 cm; Wt 56.7 kg
--- NOTE | 2020-01-16 14:39 | NUR ---
called in triage, no answer
--- NOTE | 2020-01-16 14:46 | NUR ---
Patient called in triage, still no answer.
--- NOTE | 2020-01-16 15:25 | NUR ---
pt bib friend. ambulatory to er bed 13. pt states that about 2 hours ago she had an episode of disorientation, w/ friend discribing it as her eyes "rolling over." which resolved immediately. pt states had history of similar episode a while back w/ resolve w/ cogentin. 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 stable vitals. nad noted. awaiting md wallace.
--- NOTE | 2020-01-16 16:30 | NUR ---
dr wilkerson at bedside for eval.
--- NOTE | 2020-01-16 16:45 | NUR ---
per henrry wilkerson. patient wants to speak to a social worker delinquency prevention. called and spoke w/ chele rojas regarding the matter stating "i need to talk to cary regarding this matter."
--- NOTE | 2020-01-16 17:00 | NUR ---
chele rojas at bedside talking to patient.
--- NOTE | 2020-01-16 17:12 | NUR ---
pt did admit to being homeless as of today. pt was provided w/ homeless resources. discharge from ed in stable condition.
[2020-01-16 17:14] VITALS: BP 145/84
--- NOTE | 2020-01-16 17:17 | NUR ---
This SW provided the patient with homelessness resources and safe parking sites. Patient signed homelessness waiver and was discharged.
== END 2020-01-16 17:16 | disposition home or self-care (01) ==
LOC: ER 14:20
DX: G24.09 Other drug induced dystonia (principal); Z88.0 Allergy status to penicillin; Z88.6 Allergy status to analgesic agent; Z79.899 Other long term (current) drug therapy

== ENCOUNTER 2020-01-21 17:24 | Inpatient (IN) | payer OTHER ==
[~2020-01-21] VITALS: Ht 160 cm; Wt 59.4 kg
--- NOTE | 2020-01-21 17:36 | NUR ---
PT AMBULATORY TO ER BED 10. C/O WORSENING ANXIETY FOR THE PAST FEW DAYS, HX OF SCHIZOPRENIA, STATES BEEN HEARING VOICES BUT DENIES SI/HI. STABLE VITALS. NAD NOTED. AWAITING MD SMITH.
--- NOTE | 2020-01-21 17:53 | NUR ---
ALEKSANDAR CASINO HOST AT BEDSIDE FOR EVAL.
--- NOTE | 2020-01-21 17:59 | NUR ---
PRODUCT ADVISOR AT BEDSIDE FOR BLOOD DRAW.
[2020-01-21] MEDS ORDERED: LORAZEPAM 1 MG TABLET PO ONE (18:00)
[2020-01-21] MEDS ORDERED: BENZTROPINE MESYLATE (1 MG) 1 MG TABLET PO ONE (18:00)
[2020-01-21 18:03] LABS: BASOPHILS % (AUTO) 0.5 % (0.0-2.0); EOSINOPHILS % (AUTO) 1.6 % (0.0-6.0); HEMATOCRIT 45 % (33-45); HEMOGLOBIN 15.2 g/dL (11.5-14.8); LYMPHOCYTES # (AUTO) 1.1 /CMM (0.8-4.8); LYMPHOCYTES % (AUTO) 23.1 % (20.0-44.0); MEAN CORPUSCULAR HGB CONC 34 g/dl (31.0-36.0); MEAN CORPUSCULAR VOLUME 100 fL (82-100); MONOCYTES # (AUTO) 0.3 /CMM (0.1-1.30); MONOCYTES % (AUTO) 7.2 % (2.0-12.0); NEUTROPHILS # (AUTO) 3.1 /CMM (1.8-8.9); NEUTROPHILS % (AUTO) 67.6 % (43.0-81.0); PLATELET COUNT (AUTO) 157 /CMM (150-450); RED BLOOD CELL COUNT(AUTO) 4.48 MIL/uL (4.0-5.2); WHITE BLOOD COUNT (AUTO) 4.6 K/uL (4.3-11.0)
[2020-01-21] MEDS ORDERED: LORAZEPAM 1 MG TABLET ONE (18:11)
[2020-01-21] MEDS ORDERED: BENZTROPINE MESYLATE (1 MG) 1 MG TABLET ONE (18:11)
[2020-01-21 18:16] LABS: ALANINE AMINOTRANSFERASE 21 U/L (12-78); ALBUMIN 4.1 g/dL (3.4-5.0); ALCOHOL, BLOOD < 3 mg/dL (0-0); ALKALINE PHOSPHATASE 109 U/L (46-116); ASPARTATE AMINOTRANSFERASE 19 U/L (15-37); BILIRUBIN,DIRECT 0.1 mg/dL (0.0-0.2); BILIRUBIN,TOTAL 0.4 mg/dL (0.2-1.0); CALCIUM, SERUM 8.9 mg/dL (8.5-10.1); CARBON DIOXIDE 30 mmol/L (21-32); CHLORIDE 102 mmol/L (98-107); CREATININE 0.5 mg/dL (0.6-1.3); GLUCOSE 97 mg/dL (74-106); POTASSIUM 3.5 mmol/L (3.5-5.1); SALICYLATE 5.5 mg/dL (2.8-20.0); SODIUM SERUM 139 mmol/L (136-145); TOTAL PROTEIN, SERUM 7.1 g/dL (6.4-8.2); UREA NITROGEN, BLOOD 9 mg/dL (7-18)
[2020-01-21 18:20] LABS: ACETAMINOPHEN < 10 ug/ml (10-30)
--- NOTE | 2020-01-21 18:33 | NUR ---
CALLED [facility] FOR AUTH OF VOLUNTARY GPS ADMISSION, STATES ON THE WAY
[2020-01-21 18:37] LABS: APPEARANCE,URINE Clear (CLEAR); BILIRUBIN,URINE Negative (NEGATIVE); BLOOD, URINE Negative Ery/uL (NEGATIVE); COLOR,URINE Yellow (YELLOW); KETONES,URINE Negative (NEGATIVE); LEUKOCYTE ESTERASE ,URINE Negative (NEGATIVE); NITRITE, URINE Negative (NEGATIVE); PROTEIN,URINE Negative (NEGATIVE); UGLUCOSE Negative (NEGATIVE); UROBILINOGEN,URINE 0.2 EU/dL (0.2)
--- NOTE | 2020-01-21 19:31 | NUR ---
CARMEN SPEAKING TO
--- NOTE | 2020-01-21 20:55 | NUR ---
AWAITING AUTH FOR PT TO STAY.
--- NOTE | 2020-01-21 21:21 | NUR ---
DOMONIQUE SENT TO LAB
--- NOTE | 2020-01-21 21:22 | NUR ---
PER CARMEN, PT WILL BE ADMITTED VOL. NOT ON A HOLD.
--- NOTE | 2020-01-21 23:28 | NUR ---
BED ASSIGNMENT 214-A
[2020-01-22] MEDS ORDERED: FLUO20CA36 PO (00:41)
[2020-01-22] MEDS ORDERED: ACETAMINOPHEN 325 MG TABLET PO PRN (01:30)
[2020-01-22] MEDS ORDERED: ZOLPIDEM TARTRATE 5 MG TABLET PO PRN (01:30)
[2020-01-22] MEDS ORDERED: MAG HYDROX/AL HYDROX/SIMETH 30 ML UDC PO PRN (01:30)
[2020-01-22] MEDS ORDERED: BLOOD SUGAR DIAGNOSTIC 1 EACH STRIP IN ONE (01:30)
[2020-01-22] MEDS ORDERED: MAGNESIUM HYDROXIDE 30 ML UDC PO PRN (01:30)
[2020-01-22] MEDS ORDERED: RISP2TAB23 PO (01:51)
[2020-01-22 03:46] VITALS: BP 147/64
--- NOTE | 2020-01-22 04:16 | NUR ---
GPS STERILE SUPPLY TECHNICIAN NOTE: RECEIVED PT AT 0057. PT WAS BROUGHT INTO THE UNIT VIA W/C BY AN ER STAFF. PT WAS ADMITTED ON VOLUNTARY STATUS. PER REPORT, PT PRESENTED TO THE ER REPORTING SHE WAS HEARING VOICES, HAVING RACING THOUGHTS, ANXIOUS, DEPRESSED, HAS INSOMNIA AND HAS POOR CONCENTRATION. SHE ALSO STATED SHE NEEDS HELP AND REQUESTED FOR VOLUNTARY ADMISSION. UPON FACE TO FACE EVALUATION, PT IS A/O X3, APPEARS DEPRESSED AND TIRED, FLAT AFFECT, COOPERATIVE. NO BEHAVIORAL ISSUES AT THIS TIME. PT STATED SHE IS TIRED AND WANTS TO SLEEP. PT IS DISPLAYING NO S/S OF APPARENT DISTRESS. PT DENIES ANY SUICIDAL IDEATION. RESPIRATION EVEN AND UNLABORED WITH EQUAL RISE AND FALL OF THE CHEST, ON ROOM AIR, SPO2 98%. PT WAS UNABLE TO SIGN ADMISSION PAPERS BECAUSE SHE WAS TIRED. SKIN ASSESSMENT AND ACCU-CHEK DONE. PT BS 85MG/DL. PT MEDICAL HX INCLUDES ASCITES AND LIVER CIRRHOSIS. PT IS UNDER THE PSYCHIATRIC CARE OF DR TOURE AND MEDICAL CARE OF ABDULAZIZ. BOTH DOCTOR HAVE BEEN NOTIFIED OF PT ADMISSION. PT BELONGINGS INVENTORIED AND CONTRABAND PLACED IN LOCKER. SAFETY PRECAUTIONS TAKEN, BED ALARM ON, SIDE RAILS UP X2 AND BED IN LOW LOCKED POSITION. CARE PLAN INITIATED. FLUID AND SNACKS GIVEN TOLERATED. PT ORIENTED TO UNIT AND DOCTORS. PT HANDBOOK AND A GUIDE TO PRESCRIPTION MEDICATION GIVEN. PT HAS NO NEEDS AT THIS TIME. WILL MONITOR Q15 MINS AND Q1HR FOR SAFETY, MOOD AND BEHAVIOR.
[2020-01-22 07:45] VITALS: BP 125/83
[2020-01-22 08:00] VITALS: BP 125/83
[2020-01-22] MEDS: NICOTINE PATCH (21MG) 21 MG PATCH.TD24 TD SCH (08:06)
[2020-01-22] MEDS ORDERED: OLAN10TA3 PO (08:27)
[2020-01-22] MEDS ORDERED: BENZ2TAB7 PO (08:27)
--- NOTE | 2020-01-22 10:10 | NUR ---
FAMILY CONTACT: SW contacted pts mother Renee [phone] for collateral information. Mother confirmed pt is currently homeless.
--- NOTE | 2020-01-22 11:09 | NUR ---
INITIAL DISCHARGE PLAN: Pt is homeless and living in her car and wishes to return to her place of dwelling. SW will help form a safe and proper discharge in collaboration with .
[2020-01-22] MEDS ORDERED: LORAZEPAM 1 MG TABLET PO PRN (13:00)
[2020-01-22] MEDS: FLUOXETINE HCL 20 MG CAPSULE PO SCH (13:30)
[2020-01-22] MEDS: risperiDONE 1 MG TABLET PO SCH ×2 (13:30→17:29)
[2020-01-22] MEDS: BENZTROPINE MESYLATE (1 MG) 1 MG TABLET PO SCH ×2 (13:30→17:29)
--- NOTE | 2020-01-22 13:30 | NUR ---
GPS RN Note: Ativan Patient requested Ativan for anxiety. 1mg PO administered as ordered. Will continue to monitor Q15 for mood, safety and behavior
[2020-01-22 16:00] VITALS: BP 117/78
[2020-01-22 19:54] VITALS: BP 118/54
--- NOTE | 2020-01-22 21:47 | NUR ---
GPS RN NOTE: PT REQUESTED FOR SLEEPING PILL D/T INSOMNIA. AMBIEN 5MG 1 TAB GIVEN PO PRN ORDERED AT 2144. PT IS CURRENTLY LAYING ON BED. WILL CONTINUE TO MONITOR
[2020-01-23 06:20] LABS: BASOPHILS % (AUTO) 0.7 % (0.0-2.0); EOSINOPHILS % (AUTO) 2.6 % (0.0-6.0); HEMATOCRIT 42 % (33-45); HEMOGLOBIN 14.2 g/dL (11.5-14.8); LYMPHOCYTES # (AUTO) 1.4 /CMM (0.8-4.8); LYMPHOCYTES % (AUTO) 32.8 % (20.0-44.0); MEAN CORPUSCULAR HGB CONC 34 g/dl (31.0-36.0); MEAN CORPUSCULAR VOLUME 99 fL (82-100); MONOCYTES # (AUTO) 0.3 /CMM (0.1-1.30); MONOCYTES % (AUTO) 8.4 % (2.0-12.0); NEUTROPHILS # (AUTO) 2.3 /CMM (1.8-8.9); NEUTROPHILS % (AUTO) 55.5 % (43.0-81.0); PLATELET COUNT (AUTO) 152 /CMM (150-450); RED BLOOD CELL COUNT(AUTO) 4.26 MIL/uL (4.0-5.2); WHITE BLOOD COUNT (AUTO) 4.1 K/uL (4.3-11.0)
[2020-01-23 06:23] LABS: CALCIUM, SERUM 8.5 mg/dL (8.5-10.1); CREATININE 0.6 mg/dL (0.6-1.3); POTASSIUM 3.9 mmol/L (3.5-5.1)
--- NOTE | 2020-01-23 06:28 | NUR ---
GPS RN CLOSING NOTES: PT AWAKE A/O X3. CALM AND COOPERATIVE. NO S/S OF DISTRESS, RESPIRATION EVEN AND UNLABORED WITH EQUAL RISE AND FALL OF THE CHEST. NO CHANGES NOTED, ALL CARE NEEDS MET ANTICIPATED. WILL CONTINUE TO MONITOR AND ENDORSE TO AM SHIFT.
[2020-01-23 08:00] VITALS: BP 116/74
[2020-01-23] MEDS: NICOTINE PATCH (21MG) 21 MG PATCH.TD24 TD SCH ×2 (09:00→09:22)
--- NOTE | 2020-01-23 09:00 | NUR ---
RN NOTE- PT ALERT ORIENTED TO PERSON PLACE TIME AND PURPOSE. STATES SHES 'READY TO GO HOME AND BE DC' PO INTAKE GOOD MED COMPLIANT NEEDS ATTENDED. NO BEHAVIORAL ISSUES DENIES ALL
[2020-01-23] MEDS: BENZTROPINE MESYLATE (1 MG) 1 MG TABLET PO SCH (09:22)
[2020-01-23] MEDS: FLUOXETINE HCL 20 MG CAPSULE PO SCH (09:22)
[2020-01-23] MEDS: risperiDONE 1 MG TABLET PO SCH (09:22)
--- NOTE | 2020-01-23 09:30 | NUR ---
RN NOTE- PT C/O ITCHING TO BACK AND FLANKS. RAISED ERYTHEMATOUS MACULES NOTED TO SHOULDERS. APPEARS TO BE CONTACT DERMATITIS OF UNKNOWN ETIOLOGY. PT SAID THAT SHE EXPERIENCED IT THE DAY BEFORE YESTERDAY. WILL OBTAIN WOUND CARE ASSESSMENT
--- NOTE | 2020-01-23 10:56 | NUR ---
Dr. Hidalgo discharge patient today with prescription. Dr. Smith made aware fo the discharge. Pt. without distress, denies suicidal and homicidal.
--- NOTE | 2020-01-23 11:38 | NUR ---
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 VS BP-116/74, HR- 71, RR- 18, T- 97.8, SATURATION 97%RA. PT DC INSTRUCTIONS AND RX REVIEWED W PT AND VERBALIZED UNDERSTANDING RETURNED. DENIES SI HI VH . PT ALERT ORIENTED TO PERSON PLACE TIME AND PURPOSE. ID [id number] REMOVED. VALUABLES RETURNED AND SIGNED FOR. ESCORTED OFF UNIT BY STAFF
--- NOTE | 2020-01-23 12:33 | NUR ---
Discharge Note: Pt was discharged to her car that is located at [facility]. Pt stated that she was going to call herself a taxi or an uber at the time of her discharge. Upon discharge, pt appeared to be in a euthymic mood and presented with a calm affect. Pt appeared to be alert and oriented x4 (time, place, self and situation). Pt denied both suicidal and homicidal ideation as well as auditory and visual hallucinations. Pt appeared to be ambulatory with a steady gait and was appropriately dressed. Pt will follow up with her psychiatrist, Dr. Kill[place], [place] [address] [place] [address]; . Pt will also be under the care of her floating derrick operator, Dr. Singh, located at [address] [facility] [address], [place] [address]; .
== END 2020-01-23 11:40 | disposition home or self-care (01) | DRG 885 ==
LOC: ER 17:24 → GPS 01-22 00:06
PROVIDERS: ADMIT Psychiatry & Neurology Psychiatry
DX: F25.1 Schizoaffective disorder, depressive type (principal); F23 Brief psychotic disorder; F41.9 Anxiety disorder, unspecified; Z59.0 Homelessness; F17.200 Nicotine dependence, unspecified, uncomplicated; F17.210 Nicotine dependence, cigarettes, uncomplicated; F31.9 Bipolar disorder, unspecified; K70.30 Alcoholic cirrhosis of liver without ascites; Z86.711 Personal history of pulmonary embolism; Z88.0 Allergy status to penicillin
CPT/HCPCS: 36415; 80048-TC; 80061-TC; 80076-TC; 80305; 81000-TC; 82962-TC; 84703-TC; 85025-TC; 87081-TC; C9803-CS; G0480

== ENCOUNTER 2020-01-31 15:19 | Emergency (ER) | payer SELFPAY ==
[~2020-01-31] VITALS: Ht 160 cm; Wt 59.4 kg
[~2020-01-31 15:19] MED LIST changes: -FLUO20CA42 PO; -QUET400T PO
--- NOTE | 2020-01-31 15:45 | NUR ---
"Im having knots in my stomach/abdominal pain last couple days" Patient a/ox4, breathing even and unlabored, no sob noted. Needs attended.
[2020-01-31] MEDS ORDERED: KETOROLAC TROMETHAMINE INJ 30 MG/ML VIAL IV ONE (16:00)
[2020-01-31] MEDS ORDERED: MAG HYDROX/AL HYDROX/SIMETH 30 ML UDC PO ONE (16:00)
[2020-01-31] MEDS ORDERED: LIDOCAINE VISCOUS 2% UD 15 ML UDC MM ONE (16:00)
[2020-01-31] MEDS ORDERED: IV NS 0.9% 500 ML BAG IV ONE (16:00)
[2020-01-31 16:07] LABS: BASOPHILS % (AUTO) 0.4 % (0.0-2.0); EOSINOPHILS % (AUTO) 0.8 % (0.0-6.0); HEMATOCRIT 43 % (33-45); HEMOGLOBIN 14.8 g/dL (11.5-14.8); LYMPHOCYTES # (AUTO) 0.8 /CMM (0.8-4.8); MEAN CORPUSCULAR HGB CONC 34 g/dl (31.0-36.0); MEAN CORPUSCULAR VOLUME 99 fL (82-100); MONOCYTES # (AUTO) 0.3 /CMM (0.1-1.30); MONOCYTES % (AUTO) 6.3 % (2.0-12.0); NEUTROPHILS # (AUTO) 3.7 /CMM (1.8-8.9); NEUTROPHILS % (AUTO) 76.5 % (43.0-81.0); PLATELET COUNT (AUTO) 184 /CMM (150-450); RED BLOOD CELL COUNT(AUTO) 4.36 MIL/uL (4.0-5.2); WHITE BLOOD COUNT (AUTO) 4.9 K/uL (4.3-11.0)
[2020-01-31] MEDS ORDERED: MAG HYDROX/AL HYDROX/SIMETH 30 ML UDC ONE (16:09)
[2020-01-31] MEDS ORDERED: KETOROLAC TROMETHAMINE 15 MG/ML VIAL ONE (16:09)
[2020-01-31] MEDS ORDERED: LIDOCAINE VISCOUS 2% UD 15 ML UDC ONE (16:09)
[2020-01-31 16:19] LABS: CALCIUM, SERUM 8.9 mg/dL (8.5-10.1); CREATININE 0.7 mg/dL (0.6-1.3); POTASSIUM 3.8 mmol/L (3.5-5.1)
[2020-01-31 16:25] LABS: ALBUMIN 3.7 g/dL (3.4-5.0); BILIRUBIN,DIRECT 0.1 mg/dL (0.0-0.2); BILIRUBIN,TOTAL 0.4 mg/dL (0.2-1.0); TOTAL PROTEIN, SERUM 6.7 g/dL (6.4-8.2)
[2020-01-31] MEDS ORDERED: BENZ2TAB7 PO (16:46)
[2020-01-31] MEDS ORDERED: OLAN15TA6 MT (16:46)
[2020-01-31] MEDS ORDERED: BUPR200T MT (16:46)
--- NOTE | 2020-01-31 16:58 | NUR ---
Patient discharged to home in stable condition. Written and verbal after care instructions given. Patient verbalizes understanding of instruction.IV removed. Catheter intact and site benign. Pressure and 4x4 applied to site. No bleeding noted. Pt ambulatory with a steady gait. Homeless waiver signed by the pt.
[2020-01-31 17:01] VITALS: BP 131/88
== END 2020-01-31 17:01 | disposition home or self-care (01) ==
LOC: ER 15:27
DX: R10.9 Unspecified abdominal pain (principal); Z90.89 Acquired absence of other organs; Z88.0 Allergy status to penicillin; Z88.3 Allergy status to other anti-infective agents; Z88.6 Allergy status to analgesic agent; Z79.899 Other long term (current) drug therapy
CPT/HCPCS: 36415; 80048; 80076; 83690; 85025; 96374; 99283; J1885; J7040

== ENCOUNTER 2020-02-03 18:45 | Emergency (ER) | payer OTHER ==
[~2020-02-03] VITALS: Ht 160 cm; Wt 61.2 kg
[~2020-02-03 18:45] MED LIST changes: +BENZ2TAB7 PO; +BUPR200T MT; +OLAN15TA6 MT
--- NOTE | 2020-02-03 18:53 | NUR ---
CALLED TO TRIAGE,NO ANSWER
--- NOTE | 2020-02-03 19:15 | NUR ---
BIBS TO ER BED 12. AAOX4. NOT IN RESP DISTRESS. AMBULATORY. CAME IN FOR AUDITORY HALLUCINATIONS - HEARING SCARY VOICES. PT DENIES SI/HI. VOICES ARE NOT TELLING HER TO HURT HERSELF NOR OTHERS. PT REPORTS THAT BECAUSE OF THE VOICES THAT SHE IS HEARING, ITS CAUSING HER UNABLE TO CONCENTRATE TO DRIVE. URINE COLLECTED FROM PT. AWAITING MD FOR EVAL.
[2020-02-03 19:25] LABS: APPEARANCE,URINE Clear (CLEAR); BILIRUBIN,URINE Negative (NEGATIVE); BLOOD, URINE Trace-intact Ery/uL (NEGATIVE); COLOR,URINE Yellow (YELLOW); KETONES,URINE Negative (NEGATIVE); LEUKOCYTE ESTERASE ,URINE Negative (NEGATIVE); NITRITE, URINE Negative (NEGATIVE); PROTEIN,URINE Negative (NEGATIVE); UGLUCOSE Negative (NEGATIVE); UROBILINOGEN,URINE 0.2 EU/dL (0.2)
[2020-02-03 19:30] LABS: BASOPHILS % (AUTO) 0.3 % (0.0-2.0); EOSINOPHILS % (AUTO) 1.4 % (0.0-6.0); HEMATOCRIT 42 % (33-45); HEMOGLOBIN 14.2 g/dL (11.5-14.8); LYMPHOCYTES # (AUTO) 1.3 /CMM (0.8-4.8); LYMPHOCYTES % (AUTO) 24.6 % (20.0-44.0); MEAN CORPUSCULAR HGB CONC 34 g/dl (31.0-36.0); MEAN CORPUSCULAR VOLUME 99 fL (82-100); MONOCYTES # (AUTO) 0.3 /CMM (0.1-1.30); MONOCYTES % (AUTO) 6.3 % (2.0-12.0); NEUTROPHILS # (AUTO) 3.5 /CMM (1.8-8.9); NEUTROPHILS % (AUTO) 67.4 % (43.0-81.0); PLATELET COUNT (AUTO) 205 /CMM (150-450); RED BLOOD CELL COUNT(AUTO) 4.22 MIL/uL (4.0-5.2); WHITE BLOOD COUNT (AUTO) 5.2 K/uL (4.3-11.0)
[2020-02-03] MEDS ORDERED: OLANZAPINE 5 MG TABLET PO ONE (19:30)
[2020-02-03 19:36] LABS: BACTERIA,URINE Rare /HPF (None Seen); RBC,URINE 0-2 /HPF (0-2); SQUAMOUS EPITHELIAL CELL,UR Few /HPF (None Seen); WBC,URINE 0-2 /HPF (0-3)
[2020-02-03] MEDS ORDERED: OLANZAPINE 5 MG/TAB.RAPDIS ONE (19:43)
[2020-02-03 19:45] LABS: ALANINE AMINOTRANSFERASE 24 U/L (12-78); ALBUMIN 4.2 g/dL (3.4-5.0); ALCOHOL, BLOOD < 3 mg/dL (0-0); ALKALINE PHOSPHATASE 97 U/L (46-116); ASPARTATE AMINOTRANSFERASE 18 U/L (15-37); BILIRUBIN,DIRECT 0.2 mg/dL (0.0-0.2); CALCIUM, SERUM 9.3 mg/dL (8.5-10.1); CARBON DIOXIDE 26 mmol/L (21-32); CHLORIDE 102 mmol/L (98-107); CREATININE 0.6 mg/dL (0.6-1.3); GLUCOSE 96 mg/dL (74-106); POTASSIUM 3.3 mmol/L (3.5-5.1); SALICYLATE 4.3 mg/dL (2.8-20.0); SODIUM SERUM 138 mmol/L (136-145); TOTAL PROTEIN, SERUM 6.6 g/dL (6.4-8.2); UREA NITROGEN, BLOOD 6 mg/dL (7-18)
--- NOTE | 2020-02-03 22:51 | NUR ---
PT IN BED SLEEPING, NAD NOTED
--- NOTE | 2020-02-04 03:05 | NUR ---
Patient is resting comfortably in bed with eyes closed. Easily aroused. VSS
--- NOTE | 2020-02-04 03:51 | NUR ---
PT AWAKE AND REQUESTING TO LEAVE.
--- NOTE | 2020-02-04 03:51 | NUR ---
Patient discharged to home in stable condition. Written and verbal after care instructions given. Patient verbalizes understanding of instruction. Pt wheeled to waiting room, stated she is feeling better. Ambulated with steady gait, vss.
[2020-02-04 03:52] VITALS: BP 113/71
== END 2020-02-04 03:54 | disposition home or self-care (01) ==
LOC: ER 18:49
DX: F22 Delusional disorders (principal); F20.9 Schizophrenia, unspecified; Z88.3 Allergy status to other anti-infective agents; Z88.0 Allergy status to penicillin; Z79.899 Other long term (current) drug therapy
CPT/HCPCS: 36415; 80048; 80076; 80305; 80307; 80329; 81001; 85025; 99285; G0480; 81000-TC

== ENCOUNTER 2020-02-04 17:52 | Emergency (ER) | payer OTHER ==
[~2020-02-04] VITALS: Ht 160 cm; Wt 56.7 kg
--- NOTE | 2020-02-04 17:52 | NUR ---
BIB [address] C/O DIFFUSE ABDOMINAL PAIN. TO ER BED 11, HOOKED TO MONITOR, AWAITING MD SMITH.
--- NOTE | 2020-02-04 17:59 | NUR ---
DR CEE AT BEDSIDE
[2020-02-04 18:17] LABS: BASOPHILS % (AUTO) 0.4 % (0.0-2.0); EOSINOPHILS % (AUTO) 0.5 % (0.0-6.0); HEMATOCRIT 44 % (33-45); HEMOGLOBIN 14.9 g/dL (11.5-14.8); LYMPHOCYTES # (AUTO) 1.3 /CMM (0.8-4.8); LYMPHOCYTES % (AUTO) 20.5 % (20.0-44.0); MEAN CORPUSCULAR HGB CONC 34 g/dl (31.0-36.0); MEAN CORPUSCULAR VOLUME 98 fL (82-100); MONOCYTES # (AUTO) 0.4 /CMM (0.1-1.30); MONOCYTES % (AUTO) 5.9 % (2.0-12.0); NEUTROPHILS # (AUTO) 4.5 /CMM (1.8-8.9); NEUTROPHILS % (AUTO) 72.7 % (43.0-81.0); PLATELET COUNT (AUTO) 219 /CMM (150-450); RED BLOOD CELL COUNT(AUTO) 4.45 MIL/uL (4.0-5.2); WHITE BLOOD COUNT (AUTO) 6.2 K/uL (4.3-11.0)
--- NOTE | 2020-02-04 18:20 | NUR ---
URINE SAMPLE COLLECTED AND SENT TO LAB
[2020-02-04 18:25] LABS: APPEARANCE,URINE Clear (CLEAR); BILIRUBIN,URINE Negative (NEGATIVE); BLOOD, URINE Negative Ery/uL (NEGATIVE); COLOR,URINE Yellow (YELLOW); KETONES,URINE Negative (NEGATIVE); LEUKOCYTE ESTERASE ,URINE Negative (NEGATIVE); NITRITE, URINE Negative (NEGATIVE); PROTEIN,URINE Negative (NEGATIVE); UGLUCOSE Negative (NEGATIVE); UROBILINOGEN,URINE 0.2 EU/dL (0.2)
[2020-02-04 18:26] LABS: CALCIUM, SERUM 9.4 mg/dL (8.5-10.1); CREATININE 0.7 mg/dL (0.6-1.3); POTASSIUM 3.3 mmol/L (3.5-5.1)
[2020-02-04 18:32] LABS: ALBUMIN 4.4 g/dL (3.4-5.0); BILIRUBIN,DIRECT 0.3 mg/dL (0.0-0.2); BILIRUBIN,TOTAL 1.1 mg/dL (0.2-1.0)
[2020-02-04] MEDS ORDERED: POTASSIUM CHLORIDE 20 MEQ TAB.PRT.SR PO ONE ×2 (19:28→19:30)
--- NOTE | 2020-02-04 23:24 | NUR ---
[facility]. PT ACCEPTED BY DR WOODS. FRANTZ MONTANEZ. UNIT 2. # FOR REPORT
--- NOTE | 2020-02-04 23:46 | NUR ---
[facility] 0700
--- NOTE | 2020-02-05 01:12 | NUR ---
CALL FROM [facility] INTAKE. ETA 75-90 MINUTES.
--- NOTE | 2020-02-05 02:30 | NUR ---
PT REFUSED TO BE TRANSFERRED TO [facility]. PT DENIES SI/HI.
--- NOTE | 2020-02-05 02:55 | NUR ---
Patient given written and verbal discharge instructions. Patient verbalizes understanding of instructions. Patient is ambulatory with steady gait. Refuses offer of group home placement. Patient given list of available shelters in surrounding area.IV removed. Catheter intact and site benign. Pressure and 4x4 applied to site. No bleeding noted.
[2020-02-05 02:56] VITALS: BP 121/76
== END 2020-02-05 02:56 | disposition home or self-care (01) ==
LOC: ER 17:54
DX: F20.9 Schizophrenia, unspecified (principal); E87.6 Hypokalemia; Z90.89 Acquired absence of other organs; Z88.0 Allergy status to penicillin; Z88.3 Allergy status to other anti-infective agents; Z79.899 Other long term (current) drug therapy
CPT/HCPCS: 36415; 80048-TC; 80076-TC; 80305; 81000-TC; 83690-TC; 84703-TC; 85025-TC; 85730-TC

== ENCOUNTER 2020-09-27 14:16 | Emergency (ER) | payer BC, OTHER ==
[~2020-09-27] VITALS: Ht 162.6 cm; Wt 61.2 kg
[~2020-09-27 14:16] MED LIST changes: -BUPR200T MT; +BUPR200T3 MT
--- NOTE | 2020-09-27 14:16 | NUR ---
PT [address] C/O ETOH. PT IS AAOX2, NOT IN RESPIRATORY DISTRESS, V/S STABLE, KEPT RESTED AND COMFORTABLE. WILL CONTINUE TO MONITOR.
--- NOTE | 2020-09-27 14:35 | NUR ---
URINE SPECIMEN COLLECTED AND SENT TO LAB.
[2020-09-27] MEDS ORDERED: LORAZEPAM INJ 2 MG/ML VIAL ONE (14:46)
[2020-09-27] MEDS ORDERED: HALOPERIDOL LACTATE INJ 5 MG/ML VIAL ONE (14:50)
[2020-09-27] MEDS ORDERED: diphenhydrAMINE HCL 50 MG/ML VIAL ONE (14:50)
--- NOTE | 2020-09-27 14:50 | NUR ---
ER PHLEB AT BEDSIDE FOR BLOOD DRAW.
[2020-09-27] MEDS ORDERED: diphenhydrAMINE HCL 50 MG/ML VIAL IM ONE (15:00)
[2020-09-27] MEDS ORDERED: HALOPERIDOL LACTATE INJ 5 MG/ML VIAL IM ONE (15:00)
[2020-09-27] MEDS ORDERED: LORAZEPAM INJ 2 MG/ML VIAL IM ONE (15:00)
[2020-09-27 15:01] LABS: BASOPHILS % (AUTO) 0.4 % (0.0-2.0); EOSINOPHILS % (AUTO) 1.2 % (0.0-6.0); HEMATOCRIT 44 % (33-45); HEMOGLOBIN 15.1 g/dL (11.5-14.8); LYMPHOCYTES # (AUTO) 2.3 /CMM (0.8-4.8); LYMPHOCYTES % (AUTO) 35.9 % (20.0-44.0); MEAN CORPUSCULAR HGB CONC 34 g/dl (31.0-36.0); MEAN CORPUSCULAR VOLUME 94 fL (82-100); MONOCYTES # (AUTO) 0.3 /CMM (0.1-1.30); MONOCYTES % (AUTO) 4.5 % (2.0-12.0); NEUTROPHILS # (AUTO) 3.7 /CMM (1.8-8.9); PLATELET COUNT (AUTO) 294 /CMM (150-450); RED BLOOD CELL COUNT(AUTO) 4.71 MIL/uL (4.0-5.2); WHITE BLOOD COUNT (AUTO) 6.5 K/uL (4.3-11.0)
[2020-09-27 15:05] LABS: BILIRUBIN,URINE Negative (NEGATIVE); COLOR,URINE YELLOW (YELLOW); LEUKOCYTE ESTERASE ,URINE Negative (NEGATIVE); NITRITE, URINE Negative (NEGATIVE); PROTEIN,URINE Negative (NEGATIVE); UGLUCOSE Negative (NEGATIVE); UROBILINOGEN,URINE 0.2 EU/dL (0.2)
--- NOTE | 2020-09-27 15:11 | NUR ---
covid swab done and sent to [facility]
[2020-09-27 15:17] LABS: ALANINE AMINOTRANSFERASE 30 U/L (12-78); ALCOHOL, BLOOD 231 mg/dL (0-0); ALKALINE PHOSPHATASE 108 U/L (46-116); ASPARTATE AMINOTRANSFERASE 28 U/L (15-37); BILIRUBIN,DIRECT 0.1 mg/dL (0.0-0.2); BILIRUBIN,TOTAL 0.3 mg/dL (0.2-1.0); CALCIUM, SERUM 8.9 mg/dL (8.5-10.1); CARBON DIOXIDE 27 mmol/L (21-32); CHLORIDE 102 mmol/L (98-107); CREATININE 0.6 mg/dL (0.6-1.3); GLUCOSE 88 mg/dL (74-106); POTASSIUM 3.5 mmol/L (3.5-5.1); SODIUM SERUM 140 mmol/L (136-145); TOTAL PROTEIN, SERUM 6.9 g/dL (6.4-8.2); UREA NITROGEN, BLOOD 9 mg/dL (7-18)
[2020-09-27 15:18] LABS: ACETAMINOPHEN < 10 ug/ml (10-30)
[2020-09-27 15:33] LABS: MAGNESIUM 2.3 mg/dL (1.8-2.4)
[2020-09-27 15:49] LABS: SERUM AMMONIA < 10 umol/L (11-32)
--- NOTE | 2020-09-27 15:57 | NUR ---
COVID NEGATIVE PER LAB
[2020-09-28 00:39] VITALS: BP 121/60
--- NOTE | 2020-09-28 00:39 | NUR ---
Patient discharged to home in stable condition. Written and verbal after care instructions given. Patient verbalizes understanding of instruction. IV removed. Catheter intact and site benign. Pressure and 4x4 applied to site. No bleeding noted.
== END 2020-09-28 00:40 | disposition home or self-care (01) ==
LOC: ER 14:27
DX: F10.129 Alcohol abuse with intoxication, unspecified (principal); Y90.7 Blood alcohol level of 200-239 mg/100 ml; Z20.822 Contact with and (suspected) exposure to COVID-19; Z59.0 Homelessness; Z88.8 Allergy status to other drugs, medicaments and biological substances; Z88.0 Allergy status to penicillin; F25.9 Schizoaffective disorder, unspecified; Z79.899 Other long term (current) drug therapy
CPT/HCPCS: 36415; 80048; 80076; 80299; 80307; 80320; 81003; 82140; 83735; 85025; 87426; 96372 ×2; 99284; C9803; J1200; J1630; J2060; G0480